=== PATIENT | male | born 1985 | race Caucasian/White ===

== ENCOUNTER 2022-11-01 17:41 | Emergency (ER) | payer BC ==
[2022-11-01] MEDS ORDERED: ZIPRASIDONE MESYLA 20 MG/VIAL IM ONE (18:13)
[2022-11-01] MEDS ORDERED: WATER FOR INJ,STERILE 10 ML ONE (18:13)
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
[2022-11-01 18:53] LABS: Absolute Lymphocytes (CBC) 1.6 K/uL (0.7-4.9); Hematocrit 45.7 % (39.6-49.0); Lymphocytes % 25.4 % (15.3-44.8); MCV 94.5 fL (80-100); MPV 7.5 fL (7.6-11.3); RBC Red Blood Cell Count 4.83 M/uL (4.33-5.43)
[2022-11-01] MEDS ORDERED: NA CHLORIDE 0.9% 1,000 ML ONE (19:00)
[2022-11-01 19:02] LABS: Urine Blood Negative (Negative); Urine Glucose Negative (Negative); Urine Protein Negative (Negative); Urine Specific Gravity <=1.005 (1.005-1.030); Urine pH 5.5 (5.0-7.0)
[2022-11-01] MEDS ORDERED: NALOXONE 0.4 MG/ML VIAL ONE (19:18)
[2022-11-01 19:32] LABS: Barbiturates NEGATIVE (NEGATIVE); Benzodiazepines POSITIVE (NEGATIVE); Cocaine NEGATIVE (NEGATIVE); METHAMPHETAM POSITIVE (NEGATIVE); Methadone NEGATIVE (NEGATIVE); Opiates NEGATIVE (NEGATIVE); Phencyclidine NEGATIVE (NEGATIVE); THC Cannibis NEGATIVE (NEGATIVE)
[2022-11-01 19:32] LABS: ALT/SGPT 28 U/L (16-61); AST/SGOT 26 U/L (15-37); Alkaline Phosphatase 81 U/L (45-117); BUN Blood Urea Nitrogen 5 mg/dL (7-18); Bicarbonate 27 mmol/L (21-32); Bilirubin Total 0.2 mg/dL (0.2-1.0); Glomerular Filtration Rate 121 ml/min (=/>90); Glucose Level 112 mg/dL (74-106); Magnesium 2.5 mg/dL (1.6-2.4); Potassium 3.8 mmol/L (3.5-5.1); Sodium Level 141 mmol/L (136-145)
[2022-11-01 19:50] LABS: SARS-CoV-2 Antigen Rapid Res Negative (Negative)
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
[2022-11-02 00:34] VITALS: O2SAT 99
[2022-11-02 00:38] VITALS: BP 113/72
--- NOTE | 2022-11-03 13:21 | EKG ---
Test Date: 2022-11-01 Test Time: 18:33:10 Office Auditor: MB MEASUREMENT RESULTS: Intervals: Rate: 114 IA: 178 QRSD: 84 QT: 322 QTc: 443 [place]: P: 65 IA: 178 QRS: 47 T: 61 INTERPRETIVE STATEMENTS: Sinus tachycardia Otherwise normal ECG No previous ECG available for comparison Electronically Signed On 11-03-22 13:17:08 NAVIGATING OFFICER by Moises Mason
== END 2022-11-02 00:02 | disposition home or self-care (01) ==
LOC: ER 17:41
DX: F10.129 Alcohol abuse with intoxication, unspecified (principal); F90.9 Attention-deficit hyperactivity disorder, unspecified type; Z20.822 Contact with and (suspected) exposure to COVID-19
CPT/HCPCS: 96361; 93005; 85025; 36415; 83735; 81003; 80053; 80307; 70450; 71250; 72125; 96372; 96374; 99291; 99292; 87811; J2310; J3486; J7030; G0480 ×3